=== PATIENT | male | born 1940 | race Caucasian/White ===

== ENCOUNTER → 2023-11-19 08:34 | Outpatient (REF) | payer MEDICARE, OTHER, SELFPAY ==
[2023-11-19 09:49] LABS: Protein/creatinine Ratio 0.1; Urine Protein 7 mg/dl
[2023-11-19 10:12] LABS: Blood Urea Nitrogen 28 mg/dl (9-20); Calcium 9.6 mg/dl (8.4-10.2); Carbon Dioxide 29 mmol/L (22-30); Chloride 97 mmol/L (98-107); Glucose 80 mg/dl (70-99); Potassium 4.5 mmol/L (3.5-5.1); Sodium 136 mmol/L (135-145); eGFR 49.56
[2023-11-21 12:11] LABS: Intact PTH 58.2 pg/ml (13.6-85.8)
[2023-11-23 01:07] LABS: Albumin 4.16 g/dL (3.75-5.01); Alpha 1 Globulin 0.26 g/dL (0.19-0.46); SPEP IFE Reflex Not Done; Total Protein-Electrophoresis 6.6 g/dL (6.3-8.2)
== END ==
LOC: REG 08:34
PROVIDERS: ATTENDING PHYSICIAN Specialist; FAMILY PHYSICIAN Family Medicine
DX: R94.4 Abnormal results of kidney function studies (principal); I10 Essential (primary) hypertension
CPT/HCPCS: 36415; 80048; 82570; 83970; 84155; 84156; 84165

== ENCOUNTER → 2023-12-04 10:38 | Outpatient (REF) | payer MEDICARE, OTHER, SELFPAY | LOC: HWRAD 10:38 | PROVIDERS: ATTENDING PHYSICIAN Specialist; FAMILY PHYSICIAN Family Medicine | DX: R94.4 Abnormal results of kidney function studies (principal); I10 Essential (primary) hypertension | CPT/HCPCS: 76770 ==

== ENCOUNTER → 2024-03-02 09:43 | Outpatient (REF) | payer MEDICARE, OTHER, SELFPAY | LOC: RCS 09:43 | PROVIDERS: ATTENDING PHYSICIAN Internal Medicine; FAMILY PHYSICIAN Family Medicine | DX: I10 Essential (primary) hypertension (principal) | CPT/HCPCS: 93306 ==

== ENCOUNTER → 2024-03-04 06:25 | Day surgery (SDC) | payer MEDICARE, OTHER, SELFPAY | LOC: GI 06:25 | PROVIDERS: ATTENDING PHYSICIAN Specialist; FAMILY PHYSICIAN Family Medicine | DX: Z12.11 Encounter for screening for malignant neoplasm of colon (principal); K57.30 Diverticulosis of large intestine without perforation or abscess without bleeding; K64.8 Other hemorrhoids; K56.2 Volvulus | CPT/HCPCS: 45378 ==

== ENCOUNTER → 2024-03-09 07:11 | Outpatient (REF) | payer MEDICARE, OTHER, SELFPAY ==
[2024-03-09 08:46] LABS: Glycohemoglobin (HgbA1c) 5.1 % (4.0-5.6)
[2024-03-09 08:52] LABS: TSH 2.73 uIU/ml (0.47-4.68)
[2024-03-09 09:03] LABS: Blood Urea Nitrogen 18 mg/dl (9-20); Calcium 9.7 mg/dl (8.4-10.2); Carbon Dioxide 29 mmol/L (22-30); Chloride 105 mmol/L (98-107); Glucose 84 mg/dl (70-99); HDL Cholesterol 57 mg/dl; LDL Cholesterol, Calculated 94 mg/dl; Potassium 5.1 mmol/L (3.5-5.1); Sodium 141 mmol/L (135-145); Total Cholesterol 164 mg/dl (50-199); Triglyceride 68 mg/dl (10-149); Very Low Density Lipoprotein 13 mg/dl (0-30); eGFR 59.63
== END ==
LOC: REG 07:11
PROVIDERS: ATTENDING PHYSICIAN Internal Medicine
DX: I10 Essential (primary) hypertension (principal)
CPT/HCPCS: 36415; 80048; 80061; 83036; 84443

== ENCOUNTER → 2024-05-04 07:20 | Outpatient (REF) | payer MEDICARE, OTHER, SELFPAY ==
[2024-05-04 09:22] LABS: PSA, Total - Diagnostic < 0.06 ng/ml (0.0-4.0)
== END ==
LOC: REG 07:20
PROVIDERS: ATTENDING PHYSICIAN Specialist; FAMILY PHYSICIAN Family Medicine
DX: C61 Malignant neoplasm of prostate (principal)
CPT/HCPCS: 36415; 84153

== ENCOUNTER → 2024-05-14 09:38 | Outpatient (REF) | payer MEDICARE, OTHER, SELFPAY | LOC: REG 09:38 | PROVIDERS: ATTENDING PHYSICIAN Family Medicine | DX: R05.3 Chronic cough (principal) | CPT/HCPCS: 71046 ==

== ENCOUNTER → 2024-06-03 13:24 | Outpatient (REF) | payer MEDICARE, OTHER, SELFPAY | LOC: CLAB 13:24 | PROVIDERS: ATTENDING PHYSICIAN Surgery | DX: L72.3 Sebaceous cyst (principal) | CPT/HCPCS: 88304 ==

== ENCOUNTER → 2024-10-14 06:49 | Outpatient (REF) | payer MEDICARE, OTHER, SELFPAY ==
[2024-10-14 07:19] LABS: % Basophils 0.6 % (0-2); % Eosinophils 2.1 % (0-6); % Immature Granulocytes 1.1 % (0-0.5); % Lymphocytes 19.5 % (20.5-51.1); % Monocytes 8.7 % (1.7-9.3); Absolute Eosinophils 0.1 10^3/uL (0-0.7); Absolute Immature Granulocytes 0.1 10^3/uL (0-0.05); Absolute Lymphocytes 1.3 10^3/uL (1.2-3.4); Absolute Monocytes 0.6 10^3/uL (0.1-0.6); Absolute Neutrophils 4.5 10^3/uL (1.4-6.5); Hematocrit 42.3 % (39.0-52.0); Hemoglobin 14.6 g/dL (13.0-18.0); Mean Corp Hgb Conc. 34.5 g/dL (33.0-37.0); Mean Corpuscular Hgb 29.2 pg (27.0-31.0); Mean Corpuscular Volume 84.6 fL (80.0-94.0); Mean Platelet Volume 10.7 fL (7.4-10.4); Nucleated Red Blood Cells % 0 % (-); Platelet Count 161 10^3/uL (130-400); White Blood Cell Count 6.7 10^3/uL (4.8-10.8)
[2024-10-14 07:51] LABS: ALT (SGPT) 19 U/L (0-50); AST (SGOT) 16 U/L (17-59); Albumin 4.1 g/dl (3.5-5.0); Alkaline Phosphatase 73 U/L (38-126); Blood Urea Nitrogen 20 mg/dl (9-20); Calcium 9.2 mg/dl (8.4-10.2); Carbon Dioxide 25 mmol/L (22-30); Chloride 104 mmol/L (98-107); Glucose 83 mg/dl (70-99); Potassium 4.5 mmol/L (3.5-5.1); Sodium 138 mmol/L (135-145); Total Bilirubin 0.7 mg/dl (0.2-1.3); Total Protein 6.1 g/dl (6.3-8.2); eGFR 49.25
== END ==
LOC: REG 06:49
PROVIDERS: ATTENDING PHYSICIAN Family Medicine
DX: N18.31 Chronic kidney disease, stage 3a (principal); I10 Essential (primary) hypertension
CPT/HCPCS: 36415; 80053; 85025

== ENCOUNTER → 2024-11-15 08:39 | Outpatient (REF) | payer MEDICARE, OTHER, SELFPAY | LOC: REG 08:39 | PROVIDERS: ATTENDING PHYSICIAN Psychiatry & Neurology Neurology; FAMILY PHYSICIAN Family Medicine | DX: G31.84 Mild cognitive impairment of uncertain or unknown etiology (principal) | CPT/HCPCS: 36415 ==

== ENCOUNTER → 2025-05-16 06:56 | Outpatient (REF) | payer MEDICARE, OTHER, SELFPAY ==
[2025-05-16 08:35] LABS: Blood Urea Nitrogen 15 mg/dl (9-20); Calcium 9.2 mg/dl (8.4-10.2); Carbon Dioxide 29 mmol/L (22-30); Chloride 108 mmol/L (98-107); Glucose 86 mg/dl (70-99); Potassium 5.2 mmol/L (3.5-5.1); Sodium 141 mmol/L (135-145); eGFR > 60.00
[2025-05-16 09:05] LABS: PSA, Total - Diagnostic < 0.06 ng/ml (0.0-4.0)
== END ==
LOC: REG 06:56
PROVIDERS: ATTENDING PHYSICIAN Specialist; FAMILY PHYSICIAN Family Medicine; REFERRING PHYSICIAN Specialist
DX: N18.31 Chronic kidney disease, stage 3a (principal); C61 Malignant neoplasm of prostate
CPT/HCPCS: 36415; 80048; 82570; 83970; 84153; 84156

== ENCOUNTER → 2025-06-24 07:26 | Outpatient (REF) | payer MEDICARE, OTHER, SELFPAY ==
[2025-06-24 08:20] LABS: Hematocrit 46.6 % (39.0-52.0); Hemoglobin 15.6 g/dL (13.0-18.0); Mean Corp Hgb Conc. 33.5 g/dL (33.0-37.0); Mean Corpuscular Volume 87.9 fL (80.0-94.0); Nucleated Red Blood Cells % 0 % (-); Platelet Count 202 10^3/uL (130-400); Red Cell Dist. Width 13.1 % (11.5-14.5)
[2025-06-24 08:54] LABS: ALT (SGPT) 21 U/L (0-50); AST (SGOT) 19 U/L (17-59); Albumin 4.4 g/dl (3.5-5.0); Alkaline Phosphatase 63 U/L (38-126); Blood Urea Nitrogen 19 mg/dl (9-20); Calcium 9.5 mg/dl (8.4-10.2); Carbon Dioxide 27 mmol/L (22-30); Chloride 106 mmol/L (98-107); Glucose 84 mg/dl (70-99); Magnesium 2.5 mg/dl (1.6-2.3); Sodium 141 mmol/L (135-145); Total Protein 7.1 g/dl (6.3-8.2); eGFR 59.26
[2025-06-24 09:00] LABS: Potassium 5.3 mmol/L (3.5-5.1)
== END ==
LOC: REG 07:26
PROVIDERS: ATTENDING PHYSICIAN Family Medicine; FAMILY PHYSICIAN Family Medicine
DX: R25.2 Cramp and spasm (principal); I10 Essential (primary) hypertension
CPT/HCPCS: 36415; 80053; 83735; 84443; 85025

== ENCOUNTER → 2025-07-12 06:40 | Outpatient (REF) | payer MEDICARE, OTHER, SELFPAY ==
[2025-07-12 08:25] LABS: TSH 2.26 uIU/ml (0.47-4.68)
[2025-07-12 09:09] LABS: Glycohemoglobin (HgbA1c) 5.2 % (4.0-5.9)
== END ==
LOC: REG 06:40
PROVIDERS: ATTENDING PHYSICIAN Internal Medicine; FAMILY PHYSICIAN Family Medicine
DX: R07.9 Chest pain, unspecified (principal); I10 Essential (primary) hypertension; K64.3 Fourth degree hemorrhoids
CPT/HCPCS: 36415; 83036; 84443

== ENCOUNTER → 2025-07-18 15:35 | Outpatient (REF) | payer MEDICARE, OTHER, SELFPAY | LOC: HWRCS 15:35 | PROVIDERS: ATTENDING PHYSICIAN Internal Medicine; FAMILY PHYSICIAN Family Medicine | DX: R07.9 Chest pain, unspecified (principal); I10 Essential (primary) hypertension | CPT/HCPCS: 93306 ==

== ENCOUNTER → 2025-07-20 11:06 | Outpatient (REF) | payer MEDICARE, OTHER, SELFPAY | LOC: HWRCS 11:06 | PROVIDERS: ATTENDING PHYSICIAN Internal Medicine; FAMILY PHYSICIAN Family Medicine | DX: R07.9 Chest pain, unspecified (principal); I10 Essential (primary) hypertension | CPT/HCPCS: 78452; 93017; A9500 ==